=== PATIENT | female | born 2000 | race African-American/Black ===

== ENCOUNTER 2018-04-01 14:44 | Emergency (ER) | payer OTHER ==
[~2018-04-01] VITALS: Ht 154.9 cm; Wt 61.4 kg
[2018-04-01 14:45] VITALS: BP 108/60
[2018-04-01] MEDS ORDERED: NORCOTAB PO (15:24)
[2018-04-01] MEDS ORDERED: BACT800T5 PO (15:24)
== END 2018-04-01 15:38 | disposition home or self-care (01) ==
LOC: M ED 14:44
DX: L02.219 Cutaneous abscess of trunk, unspecified (principal)

== ENCOUNTER 2018-04-04 10:39 | Emergency (ER) | payer OTHER ==
[~2018-04-04] VITALS: Ht 154.9 cm; Wt 61.4 kg
[~2018-04-04 10:39] MED LIST: BACT800T5 PO; NORCOTAB PO
[2018-04-04 12:17] VITALS: BP 119/60
== END 2018-04-04 12:20 | disposition home or self-care (01) ==
LOC: M ED 10:39
DX: L05.01 Pilonidal cyst with abscess (principal); F17.200 Nicotine dependence, unspecified, uncomplicated; Z79.2 Long term (current) use of antibiotics

== ENCOUNTER 2018-10-23 13:45 | Emergency (ER) | payer OTHER ==
[~2018-10-23] VITALS: Ht 154.9 cm; Wt 62.7 kg
[~2018-10-23 13:45] MED LIST changes: +HYDR-3715 PO; -NORCOTAB PO
[2018-10-23 13:46] VITALS: BP 129/79
[2018-10-23] MEDS ORDERED: NORC1TAB7 PO (14:11)
[2018-10-23] MEDS ORDERED: KEFL500C17 PO (14:11)
[2018-10-23] MEDS ORDERED: NORCO, ANEXSIA 5/325MG TABLET (HYDROcodone/ACETAMINOPHEN) PO ONE (14:15)
== END 2018-10-23 14:25 | disposition home or self-care (01) ==
LOC: M ED 13:45
DX: L05.91 Pilonidal cyst without abscess (principal)

== ENCOUNTER 2018-10-26 03:25 | Emergency (ER) | payer OTHER ==
[~2018-10-26] VITALS: Ht 154.9 cm; Wt 59.1 kg
[~2018-10-26 03:25] MED LIST changes: +KEFL500C17 PO; +NORC1TAB7 PO
[2018-10-26] MEDS: KETOROLAC 60 MG/2 ML VIAL (J1885) IM ONE (08:00)
[2018-10-26 08:57] VITALS: BP 113/55
[2018-10-26] MEDS ORDERED: KETO10TAB PO (09:09)
== END 2018-10-26 09:20 | disposition home or self-care (01) ==
LOC: M ED 03:25
DX: L05.91 Pilonidal cyst without abscess (principal); F17.210 Nicotine dependence, cigarettes, uncomplicated
CPT/HCPCS: 96372; 99283; J1885

== ENCOUNTER 2018-10-28 15:56 | Emergency (ER) | payer OTHER ==
[~2018-10-28] VITALS: Ht 154.9 cm; Wt 54.5 kg
[2018-10-28 15:56] VITALS: BP 135/66
[~2018-10-28 15:56] MED LIST changes: +KETO10TAB PO
== END 2018-10-28 17:24 | disposition home or self-care (01) ==
LOC: M ED 15:56
DX: L05.02 Pilonidal sinus with abscess (principal); F17.210 Nicotine dependence, cigarettes, uncomplicated

== ENCOUNTER 2018-11-11 06:24 | Day surgery (SDC) | payer OTHER ==
[~2018-11-11] VITALS: Ht 154.9 cm; Wt 53.0 kg
[~2018-11-11 06:24] MED LIST changes: +LR 1,000 ML IV ONE
[2018-11-11] MEDS ORDERED: LR 1,000 ML IV ONE (07:00)
[2018-11-11] MEDS ORDERED: MIDAZOLAM INJ 2 MG/2 ML VIAL (J2250) As Ordered ONE (07:06)
[2018-11-11] MEDS ORDERED: ROCURONIUM BROMIDE 50 MG/5 ML VIAL As Ordered ONE (07:07)
[2018-11-11] MEDS ORDERED: dexameTHASONE 4 MG/ML 1ML VIAL (J1100) As Ordered ONE (07:07)
[2018-11-11] MEDS ORDERED: ONDANSETRON 4MG/2ML VIAL (J2405) As Ordered ONE (07:07)
[2018-11-11] MEDS ORDERED: fentaNYL 100 MCG/2 ML INJECTION (J3010) As Ordered ONE (07:07)
[2018-11-11] MEDS ORDERED: PROPOFOL 200 MG/20 ML VIAL As Ordered ONE ×2 (07:07→08:25)
[2018-11-11] MEDS ORDERED: LIDOCAINE 2% INJ 100 MG/5 ML SDV (FOR ANES.) As Ordered ONE (07:07)
[2018-11-11] MEDS ORDERED: BUPIVACAINE HCL 0.25% 30 ML VIAL As Ordered ONE (07:09)
[2018-11-11] MEDS ORDERED: BUPIVACAINE LIPOSOME/PF 1.3% 20ML VIAL (13.3MG/ML)(EXPAREL)(C9290 PER1MG) As Ordered ONE (07:09)
[2018-11-11 07:12] LABS: URINE PREG TEST NEGATIVE (NEGATIVE)
[2018-11-11] MEDS ORDERED: CHLOROPROCAINE PRES. FREE 3% INJ 20 ML VIAL (J2400) As Ordered ONE (08:04)
[2018-11-11] MEDS ORDERED: ACETAMINOPHEN 1000MG 100ML IV BTL (OFIRMEV) (J0131 PER 10MG) As Ordered ONE (08:17)
[2018-11-11] MEDS ORDERED: KETOROLAC 60 MG/2 ML VIAL (J1885) As Ordered ONE (08:32)
[2018-11-11] MEDS ORDERED: ACETAMINOPHEN TAB 650MG DOSE (2X325MG) PO PRN (09:00)
[2018-11-11] MEDS ORDERED: ONDANSETRON 4MG/2ML VIAL (J2405) IV PRN (09:00)
[2018-11-11] MEDS ORDERED: fentaNYL 100 MCG/2 ML INJECTION (J3010) IV PRN (09:00)
[2018-11-11] MEDS ORDERED: METOCLOPRAMIDE INJ 10MG/2ML VIAL (J2765) IV PRN (09:00)
[2018-11-11] MEDS ORDERED: IBUPROFEN 400 MG TAB PO PRN (09:00)
[2018-11-11 10:30] VITALS: BP 110/74
--- NOTE | 2018-11-11 22:17 | RO ---
DATE OF PROCEDURE: 11/11/2018 PREOPERATIVE DIAGNOSIS: Pilonidal cyst. POSTOPERATIVE DIAGNOSIS: Pilonidal cyst. PROCEDURE PERFORMED: Pilonidal cystectomy. SURGEON: Dr. Marc Contreras INSPECTOR AIDE: ANESTHESIA: Spinal. INDICATIONS FOR PROCEDURE: Patient is a 17-year-old woman who has had several episodes of infection at the top of the gluteal cleft consistent with a pilonidal cyst with abscess. Her infection has resolved, and she is now for pilonidal cystectomy. DESCRIPTION OF PROCEDURE: The patient had a spinal anesthetic placed. She was rolled into a prone jackknife position on the operating table. The lower back, buttocks and gluteal cleft were prepped and draped in a sterile fashion. Inspection showed two very small skin pores along the midline at the top of the gluteal cleft. An elliptical excision was planned. This was incised with a scalpel, taking approximately a 1 cm wide area in the midline and extending over approximately 2-1/2 cm longitudinally. The skin was incised with a scalpel and then the dissection was deepened into the subcutaneous tissues using the needle tip cautery. In the course of dissection, a small chronic cavity was entered. As dissection proceeded, this entire area with surrounding tissue was excised down to the underlying fascia. This was passed off as a pilonidal cystectomy. The wound was inspected, and there was no evidence of any residual infectious or inflammatory tissue. Hemostasis was ensured with the cautery. Several small more persistent bleeding points were sutured with [id number] sutures of #4- 0 chromic. Approximately 25 mL of a mixture of Exparel, Marcaine, and saline were infiltrated around the wound. The wound was filled with a saline-moistened 2x2 and covered with a 4x4. The patient tolerated the procedure well without apparent complication. She was rolled into a supine position on the stretcher and transported to the recovery room in stable condition. JAMAAL
== END 2018-11-11 10:40 | disposition home or self-care (01) ==
LOC: M SDC 06:24
PROVIDERS: ATTEND Surgery
DX: L05.01 Pilonidal cyst with abscess (principal); F12.90 Cannabis use, unspecified, uncomplicated; Z72.0 Tobacco use
CPT/HCPCS: 11770; 84703; 88304; C9290; J0131; J1100; J1885; J2250; J2400; J2405; J3010